=== PATIENT | male | born 1970 | race Caucasian/White ===

== ENCOUNTER 2021-09-07 17:47 | Emergency (ER) | payer MEDICAID ==
[~2021-09-07] VITALS: Ht 182.9 cm; Wt 113.4 kg
[2021-09-07 18:03] VITALS: BP 133/88
[2021-09-07] MEDS ORDERED: NORFLEX100 MG PO (19:14)
--- NOTE | 2021-09-08 10:39 | EKG ---
[place] [address] ELECTROCARDIOGRAM REPORT Name: Rolf PARRISH Room: 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[id number] Requested By: Tommy Alcazar Order Number: [id number] MD: Arvind Charles Measurements Intervals [place] Rate: 96 P: 45 PA: 190 QRS: 91 QRSD: 100 T: 133 QT: 369 QTc: 467 Interpretive Statements Sinus rhythm Borderline right axis deviation Nonspecific T abnormalities, lateral leads No previous ECG available for comparison Electronically Signed On 09-08-2021 10:38:37 [employer] by Arvind Charles [email or web address] <ELECTRONICALLY SIGNED> By: Arvind Charles MD, [facility] 09/08/21 1038 10 10 Arvind Charles MD, FACC /EPI
== END 2021-09-07 19:23 | disposition home or self-care (01) ==
LOC: M.ERS 17:47
DX: S20.219A Contusion of unspecified front wall of thorax, initial encounter (principal); E11.9 Type 2 diabetes mellitus without complications; I25.2 Old myocardial infarction; F17.200 Nicotine dependence, unspecified, uncomplicated; W00.0XXA Fall on same level due to ice and snow, initial encounter; Y93.89 Activity, other specified; Y92.89 Other specified places as the place of occurrence of the external cause; Y99.8 Other external cause status